=== PATIENT | male | born 1965 | race Caucasian/White ===

== ENCOUNTER 2019-01-31 19:53 | Emergency (ER) | payer OTHER ==
[2019-01-31 20:00] VITALS: BP 125/82; PULSE 79; TEMP 98.2; BMI 28.7
--- NOTE | 2019-01-31 20:02 | PDOC ---
Rapid Medical Evaluation Chief Complaint: Back Pain Time Seen by Provider: 01/31/19 19:58 Medical Evaluation: Vital Signs Temp Pulse Resp BP Pulse Ox 98.2 F 79 16 125/82 99 01/31/19 19:58 01/31/19 19:58 01/31/19 19:58 01/31/19 19:58 01/31/19 19:58 01/31/19 20:00 I have performed a brief in-person evaluation of this patient. The patient presents with a chief complaint of: back pain after fall at work today Pertinent physical exam findings:Currently sitting in W/C, Stable I have ordered the following:nothing The patient will proceed to the ED for further evaluation Discharge Disposition - Diagnosis Back injury Qualifiers: Encounter type: initial encounter Qualified Code(s): S39.92XA - Unspecified injury of lower back, initial encounter - Referrals - Patient Instructions - Post Discharge Activity
[2019-01-31] MEDS ORDERED: CYCLOBENZAPRINE HCL 10 MG TABLET (FP) PO ONE (20:49)
[2019-01-31] MEDS ORDERED: KETOROLAC TROMETHAMINE 60 MG/2 ML VIAL IM ONE (20:49)
--- NOTE | 2019-01-31 20:55 | PDOC ---
History of Present Illness - General Chief Complaint: Back Pain Stated Complaint: FALL/RT.SIDE BACK PAIN Time Seen by Provider: 01/31/19 19:58 History Source: Patient Exam Limitations: Clinical Condition - History of Present Illness Initial Comments: 01/31/19 20:50 Patient with no significant past medical history present with complaint of worsening right lower back pain which is worse with getting up from sitting or laying position status post trip and fall at work today twisting lower back. Patient denies previous back injury. Patient did not take anything for pain. Denies numbness or tingling sensation. Denies saddle paresthesia or incontinence. Timing/Duration: 4-6 hours Past History - Past Medical History Home Medications: Ambulatory Orders Methocarbamol [Robaxin -] 500 mg PO TID PRN #21 tablet 01/31/19 Naproxen 500 mg PO BID PRN #20 tablet 01/31/19 COPD: No CHF: No - Suicide/Smoking/Psychosocial Hx Smoking History: Never smoked Have you smoked in the past 12 months: No Information on smoking cessation initiated: No Hx Alcohol Use: No Drug/Substance Use Hx: No Review of Systems - Review of Systems Able to Perform ROS?: Yes Is the patient limited [place] proficient: No Constitutional: No: Malaise, Weakness HEENTM: No: Symptoms Reported Respiratory: No: Symptoms reported Cardiac (ROS): No: Symptoms Reported ABD/GI: No: Nausea, Vomiting : No: Symptoms Reported Musculoskeletal: Yes: Symptoms Reported, See HPI, Back Pain (right lower back), Muscle Pain (right lower back). No: Joint Stiffness Neurological: No: Numbness, Paresthesia, Tingling, Dizziness All Other Systems: Reviewed and Negative *Physical Exam - Vital Signs Last Vital Signs Temp Pulse Resp BP Pulse Ox 98.2 F 79 16 125/82 99 01/31/19 19:58 01/31/19 19:58 01/31/19 19:58 01/31/19 19:58 01/31/19 19:58 - Physical Exam Comments: 01/31/19 20:53 GENERAL: Well developed, well nourished. Awake and alert in moderate acute distress. CARDIOVASCULAR: Regular rate and rhythm. No murmurs, rubs, or gallops. PULMONARY: No evidence of respiratory distress. Lungs clear to auscultation bilaterally. No wheezing, rales or rhonchi. ABDOMINAL: Soft. Non-tender. Non-distended. No rebound or guarding. No organomegaly. Normoactive bowel sounds MUSCULOSKELETAL : Moderate tenderness to right paravertebral muscle of lower lumbar spine of L2-S1 on the right side which is worse with external rotation of the hip to the left. No bony deformities . Negative straight leg raise of bilateral extremity. SKIN: Warm and dry. Normal capillary refill. No rashes. NEUROLOGICAL: Alert, awake, appropriate. No motor deficits in the lower extremities. Gait is normal without ataxia. PSYCHIATRIC: Cooperative. Good eye contact. Appropriate mood and affect. General Appearance: Yes: Nourished, Appropriately Dressed, Moderate Distress ED Treatment Course - RADIOLOGY Radiology Studies Ordered: Category Date Time Status SPINE-LUMBAR SACRAL [RAD] Stat Radiology 01/31/19 20:49 Ordered Medical Decision Making - Medical Decision Making 01/31/19 20:51 Patient with no significant past medical history present with complaint of worsening right lower back pain which is worse with getting up from sitting or laying position status post trip and fall at work today twisting lower back. Patient denies previous back injury. Patient did not take anything for pain. Denies numbness or tingling sensation. Denies saddle paresthesia or incontinence. Exam significant for moderate tenderness over right paravertebral muscle of lower lumbar spine of L2-S1 which is worse with external rotation of hip to the left. Symptoms likely muscle spasm versus less likely herniated disc. Toradol 60 mg IM and cyclobenzaprine 10 mg by mouth given for pain and spasm. X- ray of lumbosacral ordered to rule out acute pathology. Patient be discharged home on naproxen and Robaxin with orthopedist follow-up if negative x-ray 01/31/19 21:24 x-rays of lumbosacral shows no acute pathology. Pt stable for discharge on NSAID and muscle relaxer with advise to rest low back and heat therapy to back as symptoms likely from muscle spasm *DC/Admit/Observation/Transfer Diagnosis at time of Disposition: Back injury Qualifiers: Encounter type: initial encounter Qualified Code(s): S39.92XA - Unspecified injury of lower back, initial encounter Lumbago without sciatica Qualifiers: Chronicity: acute Back pain laterality: right Qualified Code(s): M54.5 - Low back pain - Discharge Dispostion Disposition: HOME Condition at time of disposition: Stable Decision to Admit order: No - Prescriptions Prescriptions: Methocarbamol [Robaxin -] 500 mg PO TID PRN #21 tablet PRN Reason: Back Pain Naproxen 500 mg PO BID PRN #20 tablet PRN Reason: Back Pain - Referrals Referrals: Bolivar Reed DO [Staff Physician] - - Patient Instructions Printed Discharge Instructions: DI for Low Back Pain, Exercise May Reduce Risk of Low Back Pain Additional Instructions: Your x-rays is normal. Your symptoms is likely from back strain causing muscle spasm. Take prescribed medication as needed for pain and spasm. Apply heat to lower back as needed for pain. Rest lower back for the next 24hours. Follow-up with referred orthopedics if no improvement in 3 days - Post Discharge Activity Forms/Work/School Notes: Back to Work
[2019-01-31] MEDS ORDERED: KETOROLAC TROMETHAMINE 60 MG/2 ML VIAL ONE (20:56)
[2019-01-31] MEDS ORDERED: CYCLOBENZAPRINE HCL 10 MG TABLET (FP) ONE (20:56)
== END 2019-01-31 21:35 | disposition home or self-care (01) ==
LOC: JERFT 19:53
DX: S39.92XA Unspecified injury of lower back, initial encounter (principal); X58.XXXA Exposure to other specified factors, initial encounter; Y93.89 Activity, other specified; Y92.89 Other specified places as the place of occurrence of the external cause
CPT/HCPCS: 72100-TC-FY; 99281-25